=== PATIENT | female | born 1995 | race African-American/Black ===

== ENCOUNTER 2018-10-09 14:14 | Inpatient (IN) | payer OTHER ==
[~2018-10-09] VITALS: Ht 182.9 cm; Wt 122.5 kg
[2018-10-09] MEDS ORDERED: ONDANSETRON HCL/PF 4 MG/2 ML VIAL IVP PRN (18:30)
[2018-10-09] MEDS ORDERED: ACETAMINOPHEN 325 MG TABLET PO PRN (18:30)
[2018-10-09] MEDS ORDERED: ZOLPIDEM TARTRATE 5 MG TABLET PO PRN (18:30)
[2018-10-09] MEDS ORDERED: Z GUARD REMEDY 2 OZ OINT TP PRN (18:30)
[2018-10-09 20:00] VITALS: BP 142/78
[2018-10-10] VITALS: BP 98/53
[2018-10-10 04:00] VITALS: BP 123/63
[2018-10-10 07:18] LABS: BASOPHILS # (AUTO) 0.1 /CMM (0.0-0.2); EOSINOPHILS % (AUTO) 4.1 % (0.0-6.0); HEMATOCRIT 38 % (33-45); HEMOGLOBIN 12.4 g/dL (11.5-14.8); LYMPHOCYTES # (AUTO) 3.2 /CMM (0.8-4.8); LYMPHOCYTES % (AUTO) 44.3 % (20.0-44.0); MEAN CORPUSCULAR HGB CONC 32 g/dl (31.0-36.0); MEAN CORPUSCULAR VOLUME 86 fL (82-100); MONOCYTES # (AUTO) 0.5 /CMM (0.1-1.30); MONOCYTES % (AUTO) 6.7 % (2.0-12.0); NEUTROPHILS # (AUTO) 3.2 /CMM (1.8-8.9); NEUTROPHILS % (AUTO) 43.9 % (43.0-81.0); PLATELET COUNT (AUTO) 271 /CMM (150-450); RED BLOOD CELL COUNT(AUTO) 4.48 MIL/uL (4.0-5.2); WHITE BLOOD COUNT (AUTO) 7.3 K/uL (4.3-11.0)
[2018-10-10 07:50] LABS: ALBUMIN 3.1 g/dL (3.4-5.0); BILIRUBIN,TOTAL 0.3 mg/dL (0.2-1.0); CALCIUM, SERUM 8.8 mg/dL (8.5-10.1); CREATININE 0.9 mg/dL (0.6-1.3); PHOSPHORUS 3.5 mg/dL (2.5-4.9); POTASSIUM 4.1 mmol/L (3.5-5.1); THYROID STIMULATING HORMONE 1.262 uIU/mL (0.358-3.74)
[2018-10-10 08:00] VITALS: BP 128/71
[2018-10-10] MEDS: METFORMIN 500 MG TABLET PO SCH ×2 (08:16→17:31)
[2018-10-10 16:00] VITALS: BP 130/74
[2018-10-10 20:00] VITALS: BP 122/74
[2018-10-11] VITALS: BP 102/57
[2018-10-11 04:00] VITALS: BP 119/65
[2018-10-11 08:00] VITALS: BP 76/36
[2018-10-11] MEDS: METFORMIN 500 MG TABLET PO SCH ×3 (08:30→17:02)
[2018-10-11 12:00] VITALS: BP 102/56
[2018-10-11 16:00] VITALS: BP 115/60
[2018-10-11] MEDS ORDERED: LORAZEPAM 0.5 MG TABLET PO ONE (19:00)
[2018-10-11 20:00] VITALS: BP 119/61
[2018-10-12] VITALS: BP 125/64
[2018-10-12 04:00] VITALS: BP 118/65
[2018-10-12 08:00] VITALS: BP 109/63
[2018-10-12] MEDS: METFORMIN 500 MG TABLET PO SCH (08:11)
[2018-10-12] MEDS ORDERED: SERTRALINE HCL 25 MG TABLET PO SCH (09:00)
[2018-10-12 12:00] VITALS: BP 125/63
[2018-10-12] MEDS ORDERED: SERT25TA5 PO (14:32)
[2018-10-12] MEDS ORDERED: LORA-259 PO (14:32)
[2018-10-12] MEDS ORDERED: METF-440 PO (14:32)
[2018-10-12 16:00] VITALS: BP 126/75
== END 2018-10-12 15:35 | disposition home or self-care (01) | DRG 756 ==
LOC: TELE1 16:17 → MEDSG1 10-10 10:49 → TELE1 10-11 02:52
PROVIDERS: ADMIT Nurse Practitioner Acute Care; ATTEND Nurse Practitioner Acute Care
DX: F44.9 Dissociative and conversion disorder, unspecified (principal); E66.01 Morbid (severe) obesity due to excess calories; K76.0 Fatty (change of) liver, not elsewhere classified; E28.2 Polycystic ovarian syndrome; E78.5 Hyperlipidemia, unspecified; E88.09 Other disorders of plasma-protein metabolism, not elsewhere classified; F41.9 Anxiety disorder, unspecified; N94.6 Dysmenorrhea, unspecified; Z91.410 Personal history of adult physical and sexual abuse; Z68.36 Body mass index [BMI] 36.0-36.9, adult; R74.0 Nonspecific elevation of levels of transaminase and lactic acid dehydrogenase [LDH]
CPT/HCPCS: 36415; 70450-TC; 80053-TC; 80061-TC; 83735-TC; 84100-TC; 84443-TC; 84703-TC; 85025-TC; 95819-TC; G0378